=== PATIENT | male | born 1970 | race African-American/Black ===

== ENCOUNTER 2017-08-05 05:36 | Observation (INO) | payer SELFPAY ==
[~2017-08-05] VITALS: Ht 203.2 cm; Wt 181.4 kg
[~2017-08-05 05:36] MED LIST: AMLO5TAB22 PO; BENA40TA PO; HYDR25TA5 PO; INDO25CA PO; MAXZ PO; MOBI15TA PO
[2017-08-05] MEDS ORDERED: ACETAMINOPHEN 325 MG TAB PO PRN (06:45)
[2017-08-05] MEDS ORDERED: ONDANSETRON HCL 4 MG/2 ML VIAL IVP PRN (06:45)
[2017-08-05] MEDS ORDERED: DEXTROSE 50% IN WATER 50 ML VIAL(D50) IV PUSH PRN (06:45)
[2017-08-05] MEDS ORDERED: NALOXONE HCL 0.4 MG/ML AMP IV PUSH PRN (06:45)
[2017-08-05] MEDS ORDERED: SODIUM CHLORIDE 0.9% FLUSH 10 ML FLUSH IV FLUSH PRN (06:45)
[2017-08-05] MEDS ORDERED: GLUCAGON 1 MG/ML VIAL OTHER PRN (06:45)
[2017-08-05 10:30] VITALS: BP 114/63; PULSE 90; RESP 18; TEMP 97.3; O2SAT 97
[2017-08-05] MEDS ORDERED: HEPARIN SODIUM - SQ 10,000 UNITS/ML VIAL SQ SCH (11:00)
[2017-08-05] MEDS: SODIUM CHLORIDE 0.9% FLUSH 10 ML FLUSH IV FLUSH SCH ×2 (11:13→21:02)
[2017-08-05] MEDS: SODIUM CHLOR 0.9% 1000 ML INJ 1,000 ML IV SCH ×2 (11:13→21:29)
[2017-08-05] MEDS ORDERED: INSULIN ASPART SUPPLEMENTAL SCALE SQ SCH (12:00)
[2017-08-05 16:00] VITALS: BP 124/57; PULSE 90; RESP 20; TEMP 97.5; O2SAT 98
[2017-08-05] MEDS ORDERED: PANTOPRAZOLE SODIUM 40 MG VIAL IV PUSH SCH (17:00)
--- NOTE | 2017-08-05 17:05 | HHI.HP ---
[facility] Service [facility] Primary Care Physician Non-Staff Admission Diagnosis GI complaint Diagnoses: (1) Abdominal pain Diagnosis: Principal (2) Elevated random blood glucose level Diagnosis: Principal (3) Hypertension Diagnosis: Secondary Chief Complaint: Abdominal pain Vomiting Weight loss Travel History International Travel<30 Days: No Contact w/Intl Traveler <30 Da: No Traveled to Known Affected Are: No History of Present Illness This is a pleasant 38-year-old male patient with a known medical history of hypertension, who presented to the ED with complaints of vomiting, dizziness, weakness, shortness of breath on exertion and decreased appetite 2 weeks with associated 30 pound weight loss. Patient states that he got his tooth pulled two weeks ago and since then has felt like he has had the "flu" with weakness and vomiting. This has been intermittent for the past two weeks. He states he' s been unable to eat and has lost over 30 pounds in this time. Patient states that he has been taking ibuprofen for knee pain 2 weeks as well. Does admit to constipation and occasional bloody stools. Denies any recent fever, chills, abdominal pain, chest pain, shortness of breath, nausea, diarrhea or dysuria. Patient does have a history of hypertension and on HCTZ at home, this was then in controlling his blood pressure. Patient sees an M.D. in a free clinic through [facility]. Review of Systems Constitutional: COMPLAINS OF: Fatigue, Weight loss, DENIES: Fever, Chills Eyes: DENIES: Blurred vision, Diplopia Respiratory: COMPLAINS OF: Shortness of breath, DENIES: Cough, Sputum production Cardiovascular: DENIES: Chest pain, Palpitations Gastrointestinal: COMPLAINS OF: Bloody stools, Constipation, Vomiting, DENIES: Abdominal pain, Black stools, Diarrhea, Nausea Genitourinary: DENIES: Sexual dysfunction Integumentary: DENIES: Abnormal pigmentation Hematologic/lymphatic: DENIES: Bruising Immunologic/allergic: DENIES: Eczema Neurologic: DENIES: Abnormal gait Psychiatric: COMPLAINS OF: Anxiety Except as stated in HPI: all other systems reviewed are Neg Past Family Social History Past Medical History Hypertension Past Surgical History Denies any previous surgeries. Reported Medications Active Reported Hydrochlorothiazide 25 Mg Tab 25 Mg PO DAILY Allergies: Coded Allergies: No Known Allergies (Unverified Allergy, Unknown, 08/05/17) Active Ordered Medications Current Medications Medications (Trade) Dose Ordered Sig/Yan Route Start Time Stop Time Status Last Admin (D50w (Vial) Inj) 50 ml UNSCH PRN IV PUSH 08/05/17 06:45 (Glucagon Inj) 1 mg UNSCH PRN OTHER 08/05/17 06:45 (NovoLOG SUPPLEMENTAL SCALE) 1 ACHS SLIDING SCALE SQ 08/05/17 12:00 08/05/17 12:37 Sodium Chloride 1,000 ml @ 100 mls/hr Q10H IV 08/05/17 09:00 08/05/17 11:13 (NS Flush) 2 ml UNSCH PRN IV FLUSH 08/05/17 06:45 (NS Flush) 2 ml BID IV FLUSH 08/05/17 09:00 08/05/17 11:13 (Tylenol) 650 mg Q4H PRN PO 08/05/17 06:45 (Zofran Inj) 4 mg Q6H PRN IVP 08/05/17 06:45 (Heparin Inj) 5,000 units Q12H SQ 08/05/17 11:00 08/05/17 11:13 (Narcan Inj) 0.4 mg UNSCH PRN IV PUSH 08/05/17 06:45 (Flu (Quadrivalent) Vaccine Inj) 0.5 ml ONCE ONCE IM 08/06/17 10:00 08/06/17 10:01 Family History Maternal medical history of HTN and DM. Paternal medical history significant for lung cancer. Social History Denies any tobacco, alcohol or illicit drug use. Physical Exam Vital Signs Vital Signs Date Time Temp Pulse Resp B/P (MAP) Pulse Ox O2 Delivery O2 Flow Rate FiO2 08/05/17 16:00 97.5 90 20 124/57 (79) 98 08/05/17 10:30 97.3 90 18 114/63 (80) 97 Physical Exam GENERAL: Well-developed obese male patient in NAD. SKIN: Warm and dry. No rash. HEAD: Normocephalic. Atraumatic. EYES: Pupils equal and round. No scleral icterus. No injection or drainage. ENT: No nasal bleeding or discharge. Mucous membranes pink and moist. NECK: Supple. Trachea midline. CARDIOVASCULAR: Regular rate and rhythm. S1, S2 noted. No murmur appreciated. RESPIRATORY: No accessory muscle use. Clear to auscultation. Breath sounds equal bilaterally. GASTROINTESTINAL: Abdomen soft, non-tender, nondistended. Normoactive bowel sounds x4. MUSCULOSKELETAL: No obvious deformities. Extremities without clubbing, cyanosis , or edema. NEUROLOGICAL: Awake and alert. No obvious cranial nerve deficits. Motor grossly within normal limits. 5/5 muscle strength in bilateral upper and lower extremities. Normal speech. PSYCHIATRIC: Appropriate mood and affect; insight and judgment normal. Laboratory Laboratory Tests Test 08/05/17 15:04 Septic Shock Reassessment Septic shock perfusion: reassessment completed Caprini VTE Risk Assessment Caprini VTE Risk Assessment: No/Low Risk (score <= 1) Caprini Risk Assessment Model Point Value = 1 Point Value = 2 Point Value = 3 Point Value = 5 Age 41-60 Minor surgery BMI > 25 kg/m2 Swollen legs Varicose veins or History of unexplained or recurrent spontaneous Oral contraceptives or hormone replacement Sepsis (< 1 month) Serious lung disease, including pneumonia (< 1 month) Abnormal pulmonary function Acute myocardial infarction Congestive heart failure (< 1 month) History of inflammatory bowel disease Medical patient at bed rest Age 61-74 Arthroscopic surgery Major open surgery (> 45 min) Laparoscopic surgery (> 45 min) Malignancy Confined to bed (> 72 hours) Immobilizing plaster cast Central venous access Age >= 75 History of VTE Family history of VTE Factor V Leiden Prothrombin [id number] Lupus anticoagulant Anticardiolipin antibodies Elevated serum homocysteine Heparin-induced thrombocytopenia Other congenital or acquired thrombophilia Stroke (< 1 month) Elective arthroplasty Hip, pelvis, or leg fracture Acute spinal cord injury (< 1 month) Prophylaxis Regimen Total Risk Factor Score Risk Level Prophylaxis Regimen 0-1 Low Early ambulation 2 Moderate Order ONE of the following: *Sequential Compression Device (SCD) *Heparin 5000 units SQ BID 3-4 Higher Order ONE of the following medications: *Heparin 5000 units SQ TID *Enoxaparin/Lovenox 40 mg SQ daily (WT < 150 kg, CrCl > 30 mL/min) *Enoxaparin/Lovenox 30 mg SQ daily (WT < 150 kg, CrCl > 10-29 mL/min) *Enoxaparin/Lovenox 30 mg SQ BID (WT < 150 kg, CrCl > 30 mL/min) AND/OR *Sequential Compression Device (SCD) 5 or more Highest Order ONE of the following medications: *Heparin 5000 units SQ TID (Preferred with Epidurals) *Enoxaparin/Lovenox 40 mg SQ daily (WT < 150 kg, CrCl > 30 mL/min) *Enoxaparin/Lovenox 30 mg SQ daily (WT < 150 kg, CrCl > 10-29 mL/min) *Enoxaparin/Lovenox 30 mg SQ BID (WT < 150 kg, CrCl > 30 mL/min) AND *Sequential Compression Device (SCD) Assessment and Plan Problem List: (1) Abdominal pain ICD Code: R10.9 - Unspecified abdominal pain Status: Resolved Plan: Rule out gastroenteritis vs gastritis vs gastric ulcer Patient with vomiting 2 weeks, poor appetite, and 30 pound weight loss over the past two weeks. With hyponatremia, na 130. Status post 2 L NS bolus in ED.Continue IV fluid. Patient admits to taking ibuprofen 2 weeks for knee pain. Consult placed to gastroenterology, appreciate input and recommendations. May need possible EGD. Placed on Protonix. At this time patient's pain has resolved. (2) Acute kidney injury ICD Code: N17.9 - Acute kidney failure, unspecified Plan: Creatinine 2.2 on presentation. Unknown baseline. Will hydrate. Recheck BMP in a.m. If still elevated will order renal ultrasound. Avoid nephrotoxins. (3) Elevated random blood glucose level ICD Code: R73.09 - Other abnormal glucose Plan: Random glucose was 587 on presentation. Was given IV insulin in the ER. Denies any history of diabetes. Will obtain hemoglobin A1c, follow. Accu-Chek before meals and at bedtime, sliding scale, cover as needed. Will consult rn plastics for new-onset diabetes. Consult placed to case management for assistance with discharge planning due to lack of insurance. (4) Hypokalemia ICD Code: E87.6 - Hypokalemia Plan: Suspect secondary to above. K3.4 upon presentation replace. Monitor BMP. (5) Hypertension ICD Code: I10 - Essential (primary) hypertension Plan: Will restart home medication. Continue to monitor BP trends. DVT prophylaxis: SCDs. Heparin. Luh Reilly Aug 05, 2017 17:04
[2017-08-05] MEDS ORDERED: POTASSIUM CHLORIDE 20 MEQ CONTROLLED RELEASE TAB PO ONE (17:15)
[2017-08-05] MEDS: INSULIN ASPART SUPPLEMENTAL SCALE SQ SCH ×2 (17:45→21:02)
[2017-08-05 20:00] VITALS: BP 133/77; PULSE 84; RESP 20; TEMP 97.3; O2SAT 97
[2017-08-05] MEDS ORDERED: INSULIN DETEMIR 100 UNITS/ML VIAL SQ SCH (21:00)
[2017-08-05] MEDS ORDERED: INSULIN HUMAN REGULAR 1,000 UNITS/10 ML VIAL IV PUSH ONE (21:00)
[2017-08-06] VITALS: BP 132/83; PULSE 85; RESP 20; TEMP 98; O2SAT 97
[2017-08-06 04:42] VITALS: RESP 18
[2017-08-06] MEDS: SODIUM CHLOR 0.9% 1000 ML INJ 1,000 ML IV SCH (05:15)
[2017-08-06 08:00] VITALS: BP 135/66; PULSE 73; RESP 16; TEMP 98.4; O2SAT 100
[2017-08-06] MEDS: SODIUM CHLORIDE 0.9% FLUSH 10 ML FLUSH IV FLUSH SCH (08:00)
[2017-08-06] MEDS: INSULIN ASPART SUPPLEMENTAL SCALE SQ SCH ×2 (08:00→12:10)
[2017-08-06] MEDS ORDERED: HYDROCHLOROTHIAZIDE 25 MG TAB PO SCH (09:00)
[2017-08-06] MEDS ORDERED: INSULIN DETEMIR 100 UNITS/ML VIAL SQ SCH ×2 (09:00→21:00)
[2017-08-06] MEDS ORDERED: INFLUENZA VIRUS VACCINE (QUADRIVALENT) 0.5 ML SYR IM ONE (10:00)
--- NOTE | 2017-08-06 10:38 | MB ---
cc: ILAN STONE M.D. DATE OF CONSULTATION: 08/06/2017 DATE OF : 1970. REASON FOR REFERRAL Abdominal pain, nausea, vomiting, rectal bleeding. Thank you for the consultation. HISTORY OF PRESENT ILLNESS: The patient is a 46-year-old -[place] gentleman who has been in reasonable health. The patient stated that he had loss of appetite in the last few months when he lost 20 pounds. The patient came to the emergency room complaining of dizziness, lightheaded, nausea, vomiting and some diarrhea. The patient stated that this has been going on for two days. The patient feels a little bit worse with what he thinks flu symptoms. The patient also reports a small amount of bright red blood per rectum two weeks ago. He said it was a small amount. He does not remember if had constipation at that time. He stated that he occasionally has constipation and he never had similar bleeding in the past. The patient currently feeling well laying in bed comfortably. He stated that he is back to his normal health as far as the nausea, the vomiting, the dizziness and no diarrhea. REVIEW OF SYSTEMS All 12-point negative except HPI. PAST MEDICAL HISTORY Significant for hypertension. Bilateral knee pain, degenerative disease, on disability for that. PAST SURGICAL HISTORY: None. ALLERGIES: NO KNOWN DRUG ALLERGIES. SOCIAL HISTORY: No tobacco, drugs or alcohol. FAMILY HISTORY: Significant for hypertension, diabetes. No history of colon cancer. PHYSICAL EXAMINATION: Alert, oriented, no acute distress. Vital signs stable. HEENT: Pupils equal, round and reactive to light. NECK: Supple. CHEST: Clear to auscultation and percussion. Morbidly obese. CARDIAC: Regular rate and rhythm. No murmur or gallop at this time. ABDOMEN: Soft, nontender, nondistended, obese. Positive bowel sounds. I could not appreciate hepatosplenomegaly or masses. EXTREMITIES: No clubbing, cyanosis or edema. The patient has flat foot. NEUROLOGIC: Intact with good muscle strength. No weakness. PSYCHIATRIC: Appropriate mood. LABORATORY DATA: White blood cell count 3.4, hemoglobin 13, platelet count 171. Chemistry was normal. X-RAYS: Chest x-ray normal. ASSESSMENT AND PLAN: The patient is a 46 year-old gentleman who most likely has gastroenteritis with abdominal discomfort, nausea, vomiting and diarrhea. His symptoms have completely resolved. The patient also had a small amount of bright red blood per rectum, could be related to constipation. His hemoglobin apparently is 13. The patient is ready to be discharged. The patient needs to have a colonoscopy because of the bleeding but this can be done as an outpatient. The patient lives in the [facility], so I advised him to call gastroenterology of choice to arrange for the colonoscopy as an outpatient in the next few weeks. Patient verbalized understanding and we will see him if needed or if he schedules an appointment with us as an outpatient. MD ANDRÉS Kothari/THUY /9:46 AM /10:23 AM
[2017-08-06 10:54] LABS: HEMOGLOBIN A1C 17.4 % (4.3-6.0)
[2017-08-06] MEDS ORDERED: BLOOD GLUCOSE M1 KIT (11:19)
[2017-08-06] MEDS ORDERED: INSU-101 (11:19)
[2017-08-06] MEDS ORDERED: INSULIN SYRINGE1 M10 (11:19)
[2017-08-06] MEDS ORDERED: BLOOD GLUCOSE T1 TES (11:19)
[2017-08-06 11:35] LABS: AUTOMATED NEUTROPHIL # 2.1 TH/MM3 (1.8-7.7); BASOPHIL % 0.6 % (0.0-2.0); EOSINOPHIL # 0.1 TH/MM3 (0-0.4); EOSINOPHIL % 2.2 % (0.0-4.0); HEMATOCRIT 38.4 % (39.0-51.0); HEMOGLOBIN 12.5 GM/DL (13.0-17.0); LYMPH % 25.7 % (9.0-44.0); MEAN CELL VOLUME 81.9 FL (80.0-100.0); MEAN CORPUSCULAR HEMOGLOBIN 26.6 PG (27.0-34.0); MEAN CORPUSCULAR HGB CONC 32.5 % (32.0-36.0); MEAN PLATELET VOLUME 10.4 FL (7.0-11.0); MONO % 15.3 % (0.0-8.0); MONOCYTE # 0.6 TH/MM3 (0-0.9); NEUT % 56.2 % (16.0-70.0); PLATELET COUNT 177 TH/MM3 (150-450); RED BLOOD COUNT 4.69 MIL/MM3 (4.50-5.90); RED CELL DISTRIBUTION WIDTH 14.9 % (11.6-17.2); WHITE BLOOD COUNT 3.8 TH/MM3 (4.0-11.0)
--- NOTE | 2017-08-06 11:35 | HHI.PR ---
Subjective Remarks Follow-up new onset diabetes type 2/abdominal pain /gastroenteritis /bright red blood per rectum 08/06/17-patient seen and examined, reports improvement of symptoms and nausea and emesis. Denies any more episode of bright red blood per rectum. Glucose still elevated however improved from admission. Patient reports family history positive for diabetes however mother from complication of end-stage renal failure associated with diabetes. Objective Vitals Vital Signs Date Time Temp Pulse Resp B/P (MAP) Pulse Ox O2 Delivery O2 Flow Rate FiO2 08/06/17 08:00 98.4 73 16 135/66 (89) 100 08/06/17 04:42 18 08/06/17 00:00 98.0 85 20 132/83 (99) 97 08/05/17 20:00 97.3 84 20 133/77 (95) 97 08/05/17 16:00 97.5 90 20 124/57 (79) 98 I/O 08/05/17 08/05/17 08/05/17 08/06/17 08/06/17 08/06/17 07:00 15:00 23:00 07:00 15:00 23:00 Intake Total 880 ml 600 ml 1451 ml Balance 880 ml 600 ml 1451 ml Intake Oral 880 ml 600 ml 480 ml IV Total 971 ml # Voids 1 4 # Bowel Movements 0 Result Diagram: 08/05/17 2638 Objective Remarks GENERAL: NAD SKIN: Warm and dry. HEAD: Normocephalic. EYES: No scleral icterus. No injection or drainage. NECK: Supple, trachea midline. No JVD or lymphadenopathy. CARDIOVASCULAR: Regular rate and rhythm without murmurs, gallops, or rubs. RESPIRATORY: Breath sounds equal bilaterally. No accessory muscle use. GASTROINTESTINAL: Abdomen soft, non-tender, nondistended. MUSCULOSKELETAL: No cyanosis, or edema. BACK: Nontender without obvious deformity. No CVA tenderness. Procedures None A/P Problem List: (1) Abdominal pain ICD Code: R10.9 - Unspecified abdominal pain Status: Resolved (2) Hypokalemia ICD Code: E87.6 - Hypokalemia (3) Hypertension ICD Code: I10 - Essential (primary) hypertension (4) Diabetes mellitus, type II ICD Code: E11.9 - Type 2 diabetes mellitus without complications (5) Gastroenteritis ICD Code: K52.9 - Noninfective gastroenteritis and colitis, unspecified Status: Resolved (6) Acute renal failure superimposed on stage 3 chronic kidney disease ICD Code: N17.9 - Acute kidney failure, unspecified; N18.3 - Chronic kidney disease, stage 3 (moderate) Assessment and Plan 46-year-old man with New onset diabetes type 2 Currently patient on Levemir 15 units however BG was still labile, therefore will Levemir increase to 20 units at bedtime and add Aspart 5 units 3 times a day before meals, continue sliding scale Secondary to creatinine of 2.2, oral hypoglycemic agents are contraindicated A1c pending However will likely recommend follow-up with endocrinology outpatient Although, personal development educator nurse has been consulted however patient will need outpatient follow-up Gastroparesis versus gastroenteritis Symptoms of nausea and emesis resolved with current Conservative treatment Reglan is current contraindicated 2/2 Cr of 2.2 Hypertension Continue with oral Hypertensive medication hypokalemia Give Potassium 60Meq x 1 now Bright red blood per rectum Likely 2/2 Constipation Appreciate input from GI Recommend outpatient Colonoscopy Likely Acute superimposed on CKD stage III Avoid all nephrotoxic drugs BMP pending this AM Continue with IVF hydration DVT prophylaxis: B-SCDs Discharge Planning Discharge patient to home Condition on discharge: Improved ADA Diet as tolerated Ad Lela activity Rx written:See EMR Follow-up with primary care physician in 1 week Follow with GI outpatient Problem Qualifiers (1) Diabetes mellitus, type II: Qualified Codes: E11.9 - Type 2 diabetes mellitus without complications Vinny Livingston MD Aug 06, 2017 11:35
[2017-08-06] MEDS ORDERED: NOVOLOGP2 SQ (11:38)
[2017-08-06] MEDS ORDERED: NOVOLOGSS SQ (11:38)
[2017-08-06] MEDS ORDERED: LEVEMIR SQ (11:38)
[2017-08-06 12:00] VITALS: BP 137/77; PULSE 83; RESP 16; TEMP 97.7; O2SAT 97
[2017-08-06 12:00] LABS: CALCIUM 8.2 MG/DL (8.5-10.1); CREATININE 1.7 MG/DL (0.60-1.30)
[2017-08-06] MEDS ORDERED: INSULIN ASPART 1,000 UNITS/10 ML VIAL SQ SCH (12:00)
[2017-08-06] MEDS ORDERED: POTASSIUM CHLORIDE 20 MEQ CONTROLLED RELEASE TAB PO ONE ×2 (12:00→14:00)
== END 2017-08-06 16:19 | disposition home or self-care (01) ==
LOC: PHEDDLT 05:36 → UNDOADMOB 10:17 → PH3A 10:17
PROVIDERS: ADMIT Hospitalist; ATTEND Hospitalist
DX: E11.22 Type 2 diabetes mellitus with diabetic chronic kidney disease (principal); N17.9 Acute kidney failure, unspecified; I12.9 Hypertensive chronic kidney disease with stage 1 through stage 4 chronic kidney disease, or unspecified chronic kidney disease; N18.3 Chronic kidney disease, stage 3 (moderate); E87.6 Hypokalemia; E87.1 Hypo-osmolality and hyponatremia; K52.9 Noninfective gastroenteritis and colitis, unspecified; K59.00 Constipation, unspecified; Z79.4 Long term (current) use of insulin; Z83.3 Family history of diabetes mellitus
CPT/HCPCS: 71045; 80048; 80053; 82947; 82948; 83036; 85025; 93005; 96361; 96372; 96374; 96375; 99285; C9113; G0378; J1644; J1815; J7030